=== PATIENT | female | born 1950 | race Caucasian/White ===

== ENCOUNTER → 2018-01-21 12:39 | Outpatient (CLI) | payer BC, SELFPAY | PROVIDERS: Family Provider Internal Medicine; PCP Internal Medicine; Visit Provider Surgery | DX: Z01.818 Encounter for other preprocedural examination (principal) ==

== ENCOUNTER → 2018-12-05 08:55 | Outpatient (CLI) | payer MEDICARE, SELFPAY ==
[2018-12-05 10:15] VITALS: BP 89/59; PULSE 84; RESP 16; TEMP 36.7; O2SAT 96
[2018-12-05 10:37] VITALS: BP 98/58; PULSE 79; RESP 16; TEMP 36.7; O2SAT 100
[2018-12-05 11:37] VITALS: BP 104/66; PULSE 83; RESP 18; TEMP 36.3; O2SAT 100
[2018-12-05 12:08] VITALS: BP 103/60; PULSE 80; RESP 18; TEMP 36.3; O2SAT 97
[2018-12-05 14:46] VITALS: BP 106/65; PULSE 85; RESP 18
== END ==
PROVIDERS: Family Provider Internal Medicine; PCP Internal Medicine; Referring Provider Internal Medicine Hematology & Oncology; Visit Provider Internal Medicine Hematology & Oncology
DX: C92.00 Acute myeloblastic leukemia, not having achieved remission (principal)
CPT/HCPCS: 36430; 36591; 86850; 86900; 86901; 86920; 86922; J7040; P9016; A4216